=== PATIENT | female | born 1955 | race Caucasian/White ===

== ENCOUNTER 2017-04-12 09:28 | Emergency (ER) | payer BC ==
[~2017-04-12] VITALS: Ht 167.6 cm; Wt 93.4 kg
[2017-04-12 09:32] VITALS: BP 175/75; PULSE 87; RESP 18; TEMP 97.9; O2SAT 98
[2017-04-12] MEDS ORDERED: PRED20 PO (09:50)
[2017-04-12] MEDS ORDERED: AZIT250T3 PO (09:50)
[2017-04-12] MEDS ORDERED: BENZ100 PO (09:50)
--- NOTE | 2017-04-12 09:54 | PD ---
HPI Chief Complaint: Cold / Flu Symptoms Time Seen by Provider: 09:44 Travel History International Travel<30 days: No Contact w/Intl Traveler<30days: No Traveled to known affect area: No History of Present Illness HPI 61-year-old female that presents to the ED for evaluation of cold-like symptoms. Patient has had symptoms for 5 days. Main symptom is cough and congestion. No obvious fevers or chills at this time. Per patient she is around a lot of sick people. Denies any other medical issues. She didn't got her flu shot this year. No history of asthma or COPD. No other medical issues. No urinary bowel movement issues. No abdominal pain. Chest pain and abdominal pain only with cough. Cough is nonproductive at this time. His been taking of dizziness with some relief. Main concern is that she's not improving after 5 days. No recent travel. PFSH Past Medical History ?: Not Social History Tobacco Use: No Allergies-Medications (Allergen,Severity, Reaction): Coded Allergies: penicillin G (Unverified Allergy, Severe, 09/28/16) Reported Meds & Prescriptions Reported Meds & Active Scripts Active Prednisone 20 Mg Tab 20 Mg PO BID 5 Days Tessalon Perles (Benzonatate) 100 Mg Cap 100 Mg PO TID PRN Azithromycin 250 Mg Tab 250 Mg PO DIRECTED Take 2 tabs (500 mg) on day 1 then 1 tab daily x 4 days. Review of Systems Except as stated in HPI: all other systems reviewed are Neg Physical Exam Narrative GENERAL: Well-nourished, well-developed patient in no apparent distress. SKIN: Warm and dry. HEAD: Atraumatic. Normocephalic. EYES: Pupils equal and round reactive to light and accommodation. No scleral icterus. No injection or drainage. ENT: No nasal bleeding or discharge. Mucous membranes pink and moist. TMs are clear with no sign of infection or perforation. No mastoid tenderness. Ear canals are intact bilaterally. No lymphadenopathy. Nostril mucosa is red and moist with clear mucus noted. No sinus tenderness to palpation noted. Tonsils are not enlarged or swollen. No ulvua Deviation. Tongue is midline. NECK: Trachea midline. No JVD. No meningeal signs noted CARDIOVASCULAR: Regular rate and rhythm. RESPIRATORY: No accessory muscle use. Clear to auscultation. Breath sounds equal bilaterally. GASTROINTESTINAL: Abdomen soft, non-tender, nondistended. Hepatic and splenic margins not palpable. MUSCULOSKELETAL: Extremities without clubbing, cyanosis, or edema. No obvious deformities. NEUROLOGICAL: Awake and alert. No obvious cranial nerve deficits. Motor grossly within normal limits. Five out of 5 muscle strength in the arms and legs. Normal speech. PSYCHIATRIC: Appropriate mood and affect; insight and judgment normal. Data Data Last Documented VS Vital Signs Date Time Temp Pulse Resp B/P (MAP) Pulse Ox O2 Delivery O2 Flow Rate FiO2 04/12/17 09:32 97.9 87 18 175/75 (108) 98 Orders Orders Ed Discharge Order (04/12/17 09:50) MDM Medical Decision Making Medical Screen Exam Complete: Yes Emergency Medical Condition: Yes Medical Record Reviewed: Yes Differential Diagnosis Pneumonia versus bronchitis versus sinusitis versus URI Narrative Course 61-year-old female that presents to the ED for evaluation of cold-like symptoms. Patient was properly examined and was found to have signs and symptoms very consistent with bronchitis. Patient at this time will be treated for this with prednisone, azithromycin, Tessalon Perles. Follow with PCP. See ED worsening symptoms. OTC meds as needed. Diagnosis Primary Impression: Acute bronchitis Qualified Codes: J20.9 - Acute bronchitis, unspecified Patient Instructions: General Instructions Additional Instructions: Motrin and Tylenol for pain and fever. You can use [id number] antihistamine as well as well as Mucinex as needed for runny nose and congestion. Cough drops for cough as needed. Drink plenty of fluids. Follow-up with PCP. See ED for worsening symptoms. Med/Other Pt SpecificInfo: Prescription(s) given Scripts Prednisone (Prednisone) 20 Mg Tab 20 MG PO BID for 5 Days, #10 TAB 0 Refills Prov: Jesse Reich MD 04/12/17 Benzonatate (Tessalon Perles) 100 Mg Cap 100 MG PO TID Y for COUGH, #15 CAP 0 Refills Prov: Jesse Reich MD 04/12/17 Azithromycin (Azithromycin) 250 Mg Tab 250 MG PO DIRECTED for Infection, #6 TAB 0 Refills Take 2 tabs (500 mg) on day 1 then 1 tab daily x 4 days. Prov: Jesse Reich MD 04/12/17 Disposition: 01 DISCHARGE HOME Condition: Magdi Howard Apr 12, 2017 09:54
== END 2017-04-12 10:10 | disposition home or self-care (01) ==
LOC: PHEFT 09:28
DX: J20.9 Acute bronchitis, unspecified (principal)
CPT/HCPCS: 99283

== ENCOUNTER 2017-04-25 09:00 | Emergency (ER) | payer BC ==
[~2017-04-25] VITALS: Ht 167.6 cm; Wt 92.0 kg
[~2017-04-25 09:00] MED LIST: AZIT250T3 PO; BENZ100 PO; PRED20 PO
[2017-04-25 09:05] VITALS: BP 137/80; PULSE 85; RESP 16; TEMP 98; O2SAT 98
[2017-04-25] MEDS ORDERED: LISI2.5T3 PO (09:20)
[2017-04-25] MEDS ORDERED: LEVO25TA4 PO (09:20)
[2017-04-25] MEDS ORDERED: AMLO2.5T PO (09:20)
[2017-04-25] MEDS ORDERED: LOVA20TA PO (09:20)
[2017-04-25] MEDS ORDERED: PERM5CRE11 TOPICAL (09:42)
--- NOTE | 2017-04-25 09:44 | PD ---
HPI Chief Complaint: Skin Problem Time Seen by Provider: 09:23 Travel History International Travel<30 days: No Contact w/Intl Traveler<30days: No Traveled to known affect area: No History of Present Illness HPI This patient complains of rash. Duration 3 days. It has been itching her. Across her anterior chest and some on her abdomen. There is a bit on the back of her left leg. PFSH Past Medical History Cardiovascular Problems: Yes (HTN, high chol. ) High Cholesterol: Yes Hypertension: Yes Thyroid Disease: Yes (hypo) Tetanus Vaccination: < 5 Years Influenza Vaccination: Yes ?: Not Past Surgical History Hysterectomy: Yes Social History Alcohol Use: No Tobacco Use: No Substance Use: No Allergies-Medications (Allergen,Severity, Reaction): Coded Allergies: penicillin G (Unverified Allergy, Severe, 04/25/17) Reported Meds & Prescriptions Reported Meds & Active Scripts Active Reported Lisinopril 2.5 Mg Tab 2.5 Mg PO DAILY Amlodipine (Amlodipine Besylate) 2.5 Mg Tab 2.5 Mg PO DAILY Levothyroxine (Levothyroxine Sodium) 25 Mcg Tab 25 Mcg PO DAILY Lovastatin 20 Mg Tab 20 Mg PO DAILY Review of Systems General / Constitutional: No: Fever HENT: No: Headaches Cardiovascular: No: Chest Pain or Discomfort Respiratory: No: Shortness of Breath Physical Exam Narrative GASTROINTESTINAL: Abdomen soft, non-tender, nondistended. Positive bowel sounds. No hepato-splenomegaly, or palpable masses. No guarding. Psych: Normal mood and affect. Normal insight and judgment. SKIN: Focused skin assessment reveals a excoriated papular rash on the anterior chest and abdomen and posterior left thigh . Skin is warm and dry. Palpation shows no induration or nodules. Lesions are mostly excoriated and difficult to identify Data Data Last Documented VS Vital Signs Date Time Temp Pulse Resp B/P (MAP) Pulse Ox O2 Delivery O2 Flow Rate FiO2 04/25/17 09:05 98.0 85 16 137/80 (99) 98 Room Air MDM Medical Decision Making Medical Screen Exam Complete: Yes Emergency Medical Condition: Yes Medical Record Reviewed: Yes Differential Diagnosis Scabies, dermatitis, eczema Narrative Course I have reviewed the patient's electronic medical record. We discussed differential and alternatives She is concerned about "mites". It could be scabies but I can't definitively know for sure at this point We are going to try Elimite Recommend dermatology follow-up Diagnosis Primary Impression: Rash and nonspecific skin eruption Additional Instructions: Follow-up with dermatology Med/Other Pt SpecificInfo: Prescription(s) given Scripts Permethrin Topical (Elimite Topical) 5% Cream 1 APPLIC TOPICAL ONCE for Scabies, #1 TUBE 0 Refills Prov: Niles Kc MD 04/25/17 Disposition: 01 DISCHARGE HOME Condition: Stable Niles Kc MD Apr 25, 2017 09:44
== END 2017-04-25 10:04 | disposition home or self-care (01) ==
LOC: PHED 09:00
DX: R21 Rash and other nonspecific skin eruption (principal); I10 Essential (primary) hypertension; E78.00 Pure hypercholesterolemia, unspecified; E03.9 Hypothyroidism, unspecified
CPT/HCPCS: 99282